=== PATIENT | female | born 1955 | race Caucasian/White ===

== ENCOUNTER 2016-08-27 15:31 | Emergency (ER) | payer OTHER ==
--- NOTE | 2016-08-27 18:02 | DIAGNOSTIC IMAGING REPORT ---
PROCEDURE: XR CHEST 1 VIEW INDICATION: PALPITATIONS TECHNIQUE: Single view chest. 1756 hours COMPARISON: 08/12/2012 FINDINGS: The cardiopulmonary contour and central vasculature are stable, within normal limits. The lungs are clear without focal consolidation, pleural effusion or pneumothorax. The osseous structures are intact. IMPRESSION: 1. No evidence of acute cardiopulmonary disease.
--- NOTE | 2016-08-27 18:13 | DIAGNOSTIC IMAGING REPORT ---
PROCEDURE: CT HEAD WITHOUT CONTRAST INDICATION: DIZZINESS TECHNIQUE: Noncontrast axial images with sagittal and coronal reformations. COMPARISON: None. FINDINGS: Brain and ventricles are normal. No evidence of an acute process or hemorrhage. Cavernous carotid vascular calcifications. Sinuses and mastoids are normal. IMPRESSION: 1. Cavernous carotid vascular calcifications. 2. Otherwise negative head CT. 3. Findings discussed with Dr. Curly Bryan at [address] scans at this facility use dose modulation, iterative reconstruction, and/or weight-based dosing when appropriate to reduce radiation dose to as low as reasonably achievable.
--- NOTE | 2016-08-27 19:21 | ED ORDER SUMMARY ---
..... Patient: AWILDA BATISTA OrderSheet [facility] VisitID: [id number] [address] [place] [address] 60y, F Registration Date/Time: 08/27/2016 ORDER SHEET Weight: 72.5 kg (stated) Allergies: None GENERAL ORDERS: CBC w Diff Urgent (16:01 08/27/2016 KKnebel R.N. per protocol) (16:02 KKnebel R.N.) CMP Urgent (16:08/27/2016 KKnebel R.N. per protocol) (16:02 KKnebel R.N.) UA-Culture if indicated Urgent (16:01 08/27/2016 KKnebel R.N. per protocol) (Ack 16:10 Stepan) (16:32 DONNAoerner) CT Head wo Cont Urgent (17:47 08/27/2016 Emilio STAUFFER) (Ack 17:56 Stepan) (18:28 LUCRETIAnebel R.N.) Transportation Planning Engineer (Continuous) (17:48 08/27/2016 Emilio STAUFFER) (Ack 17:59 Radha) (18:26 Radha) Chest 1V Urgent (17:48 08/27/2016 Emilio STAUFFER) (Ack 17:56 Stepan) (18:28 LUCRETIAnebel R.N.) Amylase Urgent (17:48 08/27/2016 Emilio STAUFFER) (Ack 17:56 Stepan) (18:28 Palmirabel R.N.) Lipase Urgent (17:48 08/27/2016 Emilio STAUFFER) (Ack 17:56 Stepan) (18:28 Jean-Pierre R.N.) CPK Urgent (17:48 08/27/2016 Emilio STAUFFER) (Ack 17:56 Stepan) (18:28 Jean-Pierre R.N.) Troponin-I Urgent (17:48 08/27/2016 Emilio STAUFFER) (Ack 17:56 Stepan) (18:28 Jean-Pierre R.N.) EKG - ER Stat (17:48 08/27/2016 Emilio STAUFFER) (Ack 17:59 Radha) (18:26 [facility] US Carotid Doppler Bilat Urgent (18:19 08/27/2016 Emilio STAUFFER) (Ack 18:21 Stepan) (18:28 Jean-Pierre R.N.) MEDICATION ORDERS: IV FLUIDS: IV Saline Lock (16:01 08/27/2016 Palmirabel R.N. per protocol) (16:02 LUCRETIAnebel R.N.) ORDER SHEET NOTES: [Electronically signed by Curly Bryan MD (02:03 08/29/2016)] [Electronically signed by Danika Fischer R.N. (08:08/29/2016)] [Electronically locked/signed by Danika Fischer R.N. (08:08/29/2016)]
--- NOTE | 2016-08-27 19:21 | ED CLINICAL REPORT ---
Clinical Report - Physicians/Mid Levels [facility] [address] [place] [address] 08/27/2016 15:31 Patient: AWILDA BATISTA Time Seen: 16:16. Arrived- By private vehicle. Historian- patient. HISTORY OF PRESENT ILLNESS Chief Complaint: DIZZINESS. This started today and is now gone. It was abrupt in onset and has been constant and waxing/waning. Severity described as severe at its maximum. When seen in the E.D., it was gone. Described as a sense of rotation, sense of falling and feeling off balance, light-headed and faint. The patient has had nausea. No vomiting, hearing loss, tinnitus or ear pain. Similar symptoms previously: None. REVIEW OF SYSTEMS The patient has had a headache (for several days). No chills, fever, sweats, calf pain or chest pain. No cough, difficulty breathing, pedal edema, palpitations or abdominal pain. No constipation, diarrhea, nausea, vomiting or urinary problems. All systems otherwise negative, except as recorded above. PAST HISTORY ( Hypertension. Hyperlipidemia.). Problems: Macular pucker. Fibromyalgia. Arthritis. Headache. Constipation. Anxiety Reaction. Irritable Bowel Syndrome. Animal Bite. Medications: Linzess Oral. LORazepam Oral 1 mg, at bedtime. Allergies: None. SOCIAL HISTORY Never smoker. Occasional alcohol use. FAMILY HISTORY Diabetes in first-degree relative (sibling); heart disease in first-degree relative (father); emphysema in first-degree relative (sibling); cancer in first-degree relative (mother). ADDITIONAL NOTES The nursing notes have been reviewed. PHYSICAL EXAM Vital Signs: 08/27/2016 15:35 BP: 173/70. HR: 59. RR: 16. O2 saturation: 100%. Temp: 97.6 F. Pain level now: 2/10. Have been reviewed. Appearance: Alert. No acute distress. Eyes: Pupils equal, round and reactive to light. No nystagmus. ENT: TM's normal. Moist mucous membranes. Pharynx normal. Neck: Normal inspection. Neck supple. No carotid bruit. CVS: Normal heart rate and rhythm. Heart sounds normal. Respiratory: No respiratory distress. Breath sounds normal. Abdomen: Soft and nontender. No organomegaly. Back: Normal inspection. Skin: Skin warm and dry. Normal skin color. No rash. Normal skin turgor. Extremities: Extremities exhibit normal ROM. No calf tenderness. No lower extremity edema. Neuro: Alert. Mood/affect normal. Speech normal. No cerebellar findings. No motor deficit. No sensory deficit. LABS, X-RAYS, AND EKG EKG: No acute process. Rate: 58. Prior EKG unavailable. The study has been independently viewed by me. Chest X-ray: (IMPRESSION: 1. No evidence of acute cardiopulmonary disease). The X-rays were interpreted by the radiologist and contemporaneously by me. Duplex Ultrasound: Right and left carotid study. Negative results. (appropriate flow in the vertebral arteries Discussed with the underwriting technician). The study was independently viewed by me. Laboratory Tests: UA-Culture if indicated: (SHANKAR: 08/27/2016 16:30) ( [facility] 08/27/2016 16:56) Final results Test Result Flag Units (Reference) URINE COLOR YELLOW URINE APPEARANCE SL CLOUDY URINE GLUCOSE NEGATIVE (NEGATIVE) URINE BILIRUBIN NEGATIVE (NEGATIVE) URINE KETONE TRACE (NEGATIVE) URINE SPECIFIC GRAVITY 1.020 (1.010-1.030) URINE PH 7.5 (5.0-8.0) URINE PROTEIN NEGATIVE (NEGATIVE) URINE UROBILINOGEN 0.2 EU/dL (0.2-1.0) URINE NITRITE NEGATIVE (NEGATIVE) URINE BLOOD NEGATIVE (NEGATIVE) URINE LEUK ESTERASE NEGATIVE (NEGATIVE) URINE RBC NONE SEEN rbc/hpf (0-1) URINE WBC 0-1 wbc/hpf (0-1) URINE EPITHELIAL CELLS 0-1 EPI/hpf (0-5) URINE BACTERIA NONE SEEN (NONE SEEN) URINE COMMENT CULT NOT INDICATED 2+ AMORPHOUSURINE CULTURES ARE SET-UP BASED ON THE FOLLOWING CRITERIA:POSITIVE NITRITEPOSITIVE LEUKOCYTE ESTERASEGREATER THAN 10 WHITE BLOOD CELLSMODERATE (2+) OR GREATER BACTERIA CBC w Diff: (SHANKAR: 08/27/2016 15:50) ( [facility] 08/27/2016 16:31) Final results Test Result Flag Units (Reference) WHITE BLOOD COUNT 8.9 K/uL (4.5-11.5) RED BLOOD COUNT 4.38 M/uL (4.00-5.20) HEMOGLOBIN 13.3 gm/dL (12.0-16.0) HEMATOCRIT 39.5 % (36.0-46.0) MEAN CELL VOLUME 90 fL (80-100) MEAN CORPUSCULAR HGB 30 pg (26-34) MEAN CORPUSCULAR HGB CONC 34 g/dL (31-37) RED CELL DISTRIBUTION WIDTH 12.8 % (11.6-14.8) PLATELET COUNT 376 K/uL (150-400) NEUTROPHIL % 56.6 % (50-75) LYMPH % 30.9 % (25-40) MONO % 9.5 % (3-14) EOSINOPHIL % 2.6 % (0-4) BASOPHIL % 0.4 % (0-2) Lipase: (SHANKAR: 08/27/2016 15:50) ( [facility] 08/27/2016 18:32) Final results Test Result Flag Units (Reference) LIPASE 146 U/L (73-393) AMYLASE 37 U/L (25-115) CPK 63 U/L (24-260) TROPONIN I <0.05 ng/mL (0.00-1.5) TROPONIN REFERENCE RANGE:<0.1 NEGATIVE0.1-1.5 INDETERMINANT>1.5 POSITIVE CMP: (SHANKAR: 08/27/2016 15:50) ( [facility] 08/27/2016 16:49) Final results Test Result Flag Units (Reference) GLUCOSE 101 mg/dL (70-110) BUN 18 mg/dL (7-18) CREATININE 0.9 mg/dL (0.6-1.3) Estimated GFR >60 mL/min Estimated GFR- >60 mL/min Note: Persistent reduction over 3 months in eGFR<60 mL/min/1.73 m2 defines CKD. Patients with eGFR values>=60 mL/min/1.73 m2 may also have CKD if evidence ofpersistent proteinuria. Additional information may be foundat www.kidney.org. SODIUM 146 H mmol/L (136-145) POTASSIUM 4.1 mmol/L (3.5-5.1) CHLORIDE 107 mmol/L (98-107) CARBON DIOXIDE 27 mmol/L (21-32) CALCIUM 9.4 mg/dL (8.5-10.1) TOTAL PROTEIN 7.0 g/dL (6.4-8.2) ALBUMIN 4.0 g/dL (3.3-5.0) BILIRUBIN, TOTAL 0.2 mg/dL (0.0-1.0) ALKALINE PHOSPHATASE 130 H U/L (46-116) AST (SGOT) 23 U/L (15-37) ALT (SGPT) 38 U/L (12-78) . PROGRESS AND PROCEDURES Course of Care: Patient is stable. Discussed case with patient's primary care provider, (Tom). Reviewed test results and need for additional work-up. Agreed upon treatment plan and need for patient follow-up. Health care provider will see patient in office. Patient/family counseled. Old medical records ordered. Disposition: Discharged. Condition: stable. CLINICAL IMPRESSION Dizziness INSTRUCTIONS No strenuous activity. Rest. Drink plenty of fluids. Warnings: Further evaluation is necessary. GENERAL WARNINGS: Return or contact your physician immediately if your condition worsens or changes unexpectedly, if not improving as expected, or if other problems arise. OTC Medications: Aspirin (available over the counter): take according to label instructions. Understanding of the discharge instructions verbalized by patient. Follow-up with: Fei Santos MD, [facility], , [address] [place] [address] Follow up tomorrow. Call for an appointment. (Electronically signed by Curly Bryan MD 08/29/2016 2:03)
--- NOTE | 2016-08-27 19:21 | ED ORDER SUMMARY ---
..... Patient: AWILDA BATISTA OrderSheet [facility] VisitID: [id number] [address] [place] [address] 60y, F Registration Date/Time: 08/27/2016 ORDER SHEET Weight: 72.5 kg (stated) Allergies: None GENERAL ORDERS: CBC w Diff Urgent (16:01 08/27/2016 KKnebel R.N. per protocol) (16:02 KKnebel R.N.) CMP Urgent (16:08/27/2016 KKnebel R.N. per protocol) (16:02 KKnebel R.N.) UA-Culture if indicated Urgent (16:01 08/27/2016 KKnebel R.N. per protocol) (Ack 16:10 Stepan) (16:32 DONNAoerner) CT Head wo Cont Urgent (17:47 08/27/2016 Emilio STAUFFER) (Ack 17:56 Stepan) (18:28 LUCRETIAnebel R.N.) Enamel Machine Operator (Continuous) (17:48 08/27/2016 Emilio STAUFFER) (Ack 17:59 Radha) (18:26 Radha) Chest 1V Urgent (17:48 08/27/2016 Emilio STAUFFER) (Ack 17:56 Stepan) (18:28 LUCRETIAnebel R.N.) Amylase Urgent (17:48 08/27/2016 Emilio STAUFFER) (Ack 17:56 Stepan) (18:28 Palmirabel R.N.) Lipase Urgent (17:48 08/27/2016 Emilio STAUFFER) (Ack 17:56 Stepan) (18:28 Jean-Pierre R.N.) CPK Urgent (17:48 08/27/2016 Emilio STAUFFER) (Ack 17:56 Stepan) (18:28 Jean-Pierre R.N.) Troponin-I Urgent (17:48 08/27/2016 Emilio STAUFFER) (Ack 17:56 Stepan) (18:28 Jean-Pierre R.N.) EKG - ER Stat (17:48 08/27/2016 Emilio STAUFFER) (Ack 17:59 Radha) (18:26 [facility] US Carotid Doppler Bilat Urgent (18:19 08/27/2016 Emilio STAUFFER) (Ack 18:21 Stepan) (18:28 Jean-Pierre R.N.) MEDICATION ORDERS: IV FLUIDS: IV Saline Lock (16:01 08/27/2016 Palmirabel R.N. per protocol) (16:02 LUCRETIAnebel R.N.) ORDER SHEET NOTES: [Electronically signed by Curly Bryan MD (02:03 08/29/2016)] [Electronically signed by Danika Fischer R.N. (08:08/29/2016)] [Electronically locked/signed by Danika Fischer R.N. (08:08/29/2016)]
--- NOTE | 2016-08-27 19:21 | ED NURSING NOTES ---
Clinical Report - Nurses [facility] [address] [place] [address] 08/27/2016 15:31 Patient: AWILDA BATISTA [facility]#: [id number] TRIAGE Triage time 15:35 Aug 27 2016. Acuity: LEVEL 3. Chief Complaint: HEADACHE. Alert. No acute distress. MILAGROS COMA SCORE: Milagros Coma Scale: 15- eyes open spontaneously (4); best verbal response- oriented x 4 (5); best motor response- obeys commands (6). --15:42 Danika Fischer R.N. 15:35 08/27/16. BP: 173/70. HR: 59. RR: 16. O2 saturation: 100%. Temp: 97.6 F. Pain level now: 06/01. --15:42 Danika Fischer R.N. Weight: 72.5 kg stated. Height/Length: 63 inches Per Patient. BMI: 28.3. --15:36 Danika Fischer R.N. Medications LORazepam Oral 1 mg, at bedtime. --15:38 Danika Fischer R.N. Linzess Oral. --15:38 Danika Fischer R.N. Allergies None. --15:38 Danika Fischer R.N. History Arrived by private vehicle. Historian: patient. Accompanied by family. This started about 2 days. She has had nausea. ( feels like things are spinning). Treatment CURRICULUM AND ASSESSMENT DIRECTOR: None. PAST MEDICAL HX: Headaches. Immunizations: up-to-date. The patient has had a hysterectomy. Denies current . SOCIAL HX: Never smoker. Occasional alcohol use. No drug use. No recent travel. No infectious disease exposure. No known contact with a sick individual. SELF HARM ASSESSMENT: A self harm assessment was performed. The patient answered "no" to the question "Do you have thoughts of harming or killing yourself?". FALL RISK ASSESSMENT: Fall risk assessment completed. No fall risk identified. NUTRITIONAL RISK ASSESSMENT: The nutritional risk assessment revealed no deficiencies. FUNCTIONAL ASSESSMENT: Functional assessment: no impairments noted. LEARNING NEEDS ASSESSMENT: The learning needs assessment revealed no barriers. ABUSE ASSESSMENT: Abuse assessment: The patient was asked "Do you feel safe in your home?". SKIN INTEGRITY ASSESSMENT: Skin integrity risk assessment completed. No skin integrity risk identified. --15:42 Danika Fischer R.N. PROBLEMS: Constipation. Anxiety Reaction. Irritable Bowel Syndrome. Animal Bite. Tetanus Status. --15:40 Danika Fischer R.N. Macular pucker. Fibromyalgia. Arthritis. --15:42 Danika Fischer R.N. ADDITIONAL SURGERIES: Colon resection. Foot surgery. Hysterectomy. Knee Surgery. Lumbar laminectomy. Shoulder Surgery. --15:40 Danika Fischer R.N. Interventions ID band on patient. To room. --15:42 Danika Fischer R.N. PHYSICAL ASSESSMENT GENERAL / NEURO / PSYCH: Alert. Oriented X 4. Appears in pain. Speech within normal limits. ( WRIGHT, Dizziness). RESPIRATORY: Respirations not labored. CVS: Capillary refill less than 2 seconds. GI / : The patient has had nausea. Abdomen soft and nontender. SKIN: Skin is warm and dry. --15:44 Danika Fischer R.N. NURSING PROGRESS NOTES Pulse oximeter and NIBP monitor placed on patient; monitor alarms on. Patient gowned. Head of bed elevated. Patient identifiers checked. Call light placed in reach. Side rails up x 1. Bed placed in lowest position. Brakes of bed on. --15:44 Danika Fischer R.N. 16:01 08/27/2016 Site #1 started via IV in the left wrist with an 20g angiocath, with aseptic technique and good blood return; one attempt. Blood drawn: rainbow set. Labeled in the presence of the patient and sent to the lab. Saline lock flushed with 10 mL saline. --16:02 Danika Fischer R.N. The patient is calm and resting quietly. Overall patient status is the same- she states feels the same. GENERAL / NEURO / PSYCH: The patient reports headache. GI / : Denies nausea. --18:29 Danika Fischer R.N. 18:28 08/27/16. BP: 150/68. HR: 71. O2 saturation: 100%. Pain level now: . --18:29 Danika Fischer R.N. EKG time: (18:11). EKG was performed by a tech and shown to the ED physician. --19:05 Oly Rios. DISPOSITION / DISCHARGE 19:35 08/27/2016 Site #1 removed upon discharge. Catheter intact. Bandage applied. --19:35 Danika Fischer R.N. Departure time: 19:36 Aug 27 2016. Condition at departure: unchanged. No learning barriers present. Discharge instructions provided and reviewed with the patient. Reviewed medication(s) side effects, precautions, dosing and course information. Reviewed referral to a primary care physician. Patient verbalized understanding. Written instructions provided in Arabic. The patient was discharged home and accompanied by spouse. She left the Emergency Department ambulatory and via private vehicle. Spouse driving. FALL RISK ASSESSMENT: Fall risk assessment completed. No fall risk identified. --19:37 Danika Fischer R.N. 19:34 08/27/16. BP: 130/57. HR: 56. RR: 16. O2 saturation: 100%. Pain level now: 05/01. --19:37 Danika Fischer R.N. Locked/Released at 08/29/2016 8:26 by Danika Fischer R.N.
--- NOTE | 2016-08-27 19:21 | ED CLINICAL REPORT ---
Clinical Report - Physicians/Mid Levels [facility] [address] [place] [address] 08/27/2016 15:31 Patient: AWILDA BATISTA Time Seen: 16:16. Arrived- By private vehicle. Historian- patient. HISTORY OF PRESENT ILLNESS Chief Complaint: DIZZINESS. This started today and is now gone. It was abrupt in onset and has been constant and waxing/waning. Severity described as severe at its maximum. When seen in the E.D., it was gone. Described as a sense of rotation, sense of falling and feeling off balance, light-headed and faint. The patient has had nausea. No vomiting, hearing loss, tinnitus or ear pain. Similar symptoms previously: None. REVIEW OF SYSTEMS The patient has had a headache (for several days). No chills, fever, sweats, calf pain or chest pain. No cough, difficulty breathing, pedal edema, palpitations or abdominal pain. No constipation, diarrhea, nausea, vomiting or urinary problems. All systems otherwise negative, except as recorded above. PAST HISTORY ( Hypertension. Hyperlipidemia.). Problems: Macular pucker. Fibromyalgia. Arthritis. Headache. Constipation. Anxiety Reaction. Irritable Bowel Syndrome. Animal Bite. Medications: Linzess Oral. LORazepam Oral 1 mg, at bedtime. Allergies: None. SOCIAL HISTORY Never smoker. Occasional alcohol use. FAMILY HISTORY Diabetes in first-degree relative (sibling); heart disease in first-degree relative (father); emphysema in first-degree relative (sibling); cancer in first-degree relative (mother). ADDITIONAL NOTES The nursing notes have been reviewed. PHYSICAL EXAM Vital Signs: 08/27/2016 15:35 BP: 173/70. HR: 59. RR: 16. O2 saturation: 100%. Temp: 97.6 F. Pain level now: 2/10. Have been reviewed. Appearance: Alert. No acute distress. Eyes: Pupils equal, round and reactive to light. No nystagmus. ENT: TM's normal. Moist mucous membranes. Pharynx normal. Neck: Normal inspection. Neck supple. No carotid bruit. CVS: Normal heart rate and rhythm. Heart sounds normal. Respiratory: No respiratory distress. Breath sounds normal. Abdomen: Soft and nontender. No organomegaly. Back: Normal inspection. Skin: Skin warm and dry. Normal skin color. No rash. Normal skin turgor. Extremities: Extremities exhibit normal ROM. No calf tenderness. No lower extremity edema. Neuro: Alert. Mood/affect normal. Speech normal. No cerebellar findings. No motor deficit. No sensory deficit. LABS, X-RAYS, AND EKG EKG: No acute process. Rate: 58. Prior EKG unavailable. The study has been independently viewed by me. Chest X-ray: (IMPRESSION: 1. No evidence of acute cardiopulmonary disease). The X-rays were interpreted by the radiologist and contemporaneously by me. Duplex Ultrasound: Right and left carotid study. Negative results. (appropriate flow in the vertebral arteries Discussed with the optical engineering technician). The study was independently viewed by me. Laboratory Tests: UA-Culture if indicated: (SHANKAR: 08/27/2016 16:30) ( [facility] 08/27/2016 16:56) Final results Test Result Flag Units (Reference) URINE COLOR YELLOW URINE APPEARANCE SL CLOUDY URINE GLUCOSE NEGATIVE (NEGATIVE) URINE BILIRUBIN NEGATIVE (NEGATIVE) URINE KETONE TRACE (NEGATIVE) URINE SPECIFIC GRAVITY 1.020 (1.010-1.030) URINE PH 7.5 (5.0-8.0) URINE PROTEIN NEGATIVE (NEGATIVE) URINE UROBILINOGEN 0.2 EU/dL (0.2-1.0) URINE NITRITE NEGATIVE (NEGATIVE) URINE BLOOD NEGATIVE (NEGATIVE) URINE LEUK ESTERASE NEGATIVE (NEGATIVE) URINE RBC NONE SEEN rbc/hpf (0-1) URINE WBC 0-1 wbc/hpf (0-1) URINE EPITHELIAL CELLS 0-1 EPI/hpf (0-5) URINE BACTERIA NONE SEEN (NONE SEEN) URINE COMMENT CULT NOT INDICATED 2+ AMORPHOUSURINE CULTURES ARE SET-UP BASED ON THE FOLLOWING CRITERIA:POSITIVE NITRITEPOSITIVE LEUKOCYTE ESTERASEGREATER THAN 10 WHITE BLOOD CELLSMODERATE (2+) OR GREATER BACTERIA CBC w Diff: (SHANKAR: 08/27/2016 15:50) ( [facility] [place] 08/27/2016 16:31) Final results Test Result Flag Units (Reference) WHITE BLOOD COUNT 8.9 K/uL (4.5-11.5) RED BLOOD COUNT 4.38 M/uL (4.00-5.20) HEMOGLOBIN 13.3 gm/dL (12.0-16.0) HEMATOCRIT 39.5 % (36.0-46.0) MEAN CELL VOLUME 90 fL (80-100) MEAN CORPUSCULAR HGB 30 pg (26-34) MEAN CORPUSCULAR HGB CONC 34 g/dL (31-37) RED CELL DISTRIBUTION WIDTH 12.8 % (11.6-14.8) PLATELET COUNT 376 K/uL (150-400) NEUTROPHIL % 56.6 % (50-75) LYMPH % 30.9 % (25-40) MONO % 9.5 % (3-14) EOSINOPHIL % 2.6 % (0-4) BASOPHIL % 0.4 % (0-2) Lipase: (SHANKAR: 08/27/2016 15:50) ( [facility] [place] 08/27/2016 18:32) Final results Test Result Flag Units (Reference) LIPASE 146 U/L (73-393) AMYLASE 37 U/L (25-115) CPK 63 U/L (24-260) TROPONIN I <0.05 ng/mL (0.00-1.5) TROPONIN REFERENCE RANGE:<0.1 NEGATIVE0.1-1.5 INDETERMINANT>1.5 POSITIVE CMP: (SHANKAR: 08/27/2016 15:50) ( [facility] [place] 08/27/2016 16:49) Final results Test Result Flag Units (Reference) GLUCOSE 101 mg/dL (70-110) BUN 18 mg/dL (7-18) CREATININE 0.9 mg/dL (0.6-1.3) Estimated GFR >60 mL/min Estimated GFR- >60 mL/min Note: Persistent reduction over 3 months in eGFR<60 mL/min/1.73 m2 defines CKD. Patients with eGFR values>=60 mL/min/1.73 m2 may also have CKD if evidence ofpersistent proteinuria. Additional information may be foundat [email or web address].org. SODIUM 146 H mmol/L (136-145) POTASSIUM 4.1 mmol/L (3.5-5.1) CHLORIDE 107 mmol/L (98-107) CARBON DIOXIDE 27 mmol/L (21-32) CALCIUM 9.4 mg/dL (8.5-10.1) TOTAL PROTEIN 7.0 g/dL (6.4-8.2) ALBUMIN 4.0 g/dL (3.3-5.0) BILIRUBIN, TOTAL 0.2 mg/dL (0.0-1.0) ALKALINE PHOSPHATASE 130 H U/L (46-116) AST (SGOT) 23 U/L (15-37) ALT (SGPT) 38 U/L (12-78) . PROGRESS AND PROCEDURES Course of Care: Patient is stable. Discussed case with patient's primary care provider, (Tom). Reviewed test results and need for additional work-up. Agreed upon treatment plan and need for patient follow-up. Health care provider will see patient in office. Patient/family counseled. Old medical records ordered. Disposition: Discharged. Condition: stable. CLINICAL IMPRESSION Dizziness INSTRUCTIONS No strenuous activity. Rest. Drink plenty of fluids. Warnings: Further evaluation is necessary. GENERAL WARNINGS: Return or contact your physician immediately if your condition worsens or changes unexpectedly, if not improving as expected, or if other problems arise. OTC Medications: Aspirin (available over the counter): take according to label instructions. Understanding of the discharge instructions verbalized by patient. Follow-up with: Fei Santos MD, [facility], , [address] [place] [address] Follow up tomorrow. Call for an appointment. (Electronically signed by Curly Bryan MD 08/29/2016 2:03)
--- NOTE | 2016-08-27 19:21 | ED NURSING NOTES ---
Clinical Report - Nurses [facility] [address] [place] [address] 08/27/2016 15:31 [id number] Triage time 15:35 Aug 27 2016. Acuity: LEVEL 3. Chief Complaint: HEADACHE. Alert. No acute distress. MILAGROS COMA SCORE: Milagros Coma Scale: 15- eyes open spontaneously (4); best verbal response- oriented x 4 (5); best motor response- obeys commands (6). --15:42 Danika Fischer R.N. 15:35 08/27/16. BP: 173/70. HR: 59. RR: 16. O2 saturation: 100%. Temp: 97.6 F. Pain level now: 06/01. --15:42 Danika Fischer R.N. Weight: 72.5 kg stated. Height/Length: 63 inches Per Patient. BMI: 28.3. --15:36 Danika Fischer R.N. Medications LORazepam Oral 1 mg, at bedtime. --15:38 Danika Fischer R.N. Linzess Oral. --15:38 Danika Fischer R.N. Allergies None. --15:38 Danika Fischer R.N. History Arrived by private vehicle. Historian: patient. Accompanied by family. This started about 2 days. She has had nausea. ( feels like things are spinning). Treatment MANAGER GROCERY: None. PAST MEDICAL HX: Headaches. Immunizations: up-to-date. The patient has had a hysterectomy. Denies current . SOCIAL HX: Never smoker. Occasional alcohol use. No drug use. No recent travel. No infectious disease exposure. No known contact with a sick individual. SELF HARM ASSESSMENT: A self harm assessment was performed. The patient answered "no" to the question "Do you have thoughts of harming or killing yourself?". FALL RISK ASSESSMENT: Fall risk assessment completed. No fall risk identified. NUTRITIONAL RISK ASSESSMENT: The nutritional risk assessment revealed no deficiencies. FUNCTIONAL ASSESSMENT: Functional assessment: no impairments noted. LEARNING NEEDS ASSESSMENT: The learning needs assessment revealed no barriers. ABUSE ASSESSMENT: Abuse assessment: The patient was asked "Do you feel safe in your home?". SKIN INTEGRITY ASSESSMENT: Skin integrity risk assessment completed. No skin integrity risk identified. --15:42 Danika Fischer R.N. PROBLEMS: Constipation. Anxiety Reaction. Irritable Bowel Syndrome. Animal Bite. Tetanus Status. --15:40 Danika Fischer R.N. Macular pucker. Fibromyalgia. Arthritis. --15:42 Danika Fischer R.N. ADDITIONAL SURGERIES: Colon resection. Foot surgery. Hysterectomy. Knee Surgery. Lumbar laminectomy. Shoulder Surgery. --15:40 Danika Fischer R.N. Interventions ID band on patient. To room. --15:42 Danika Fischer R.N. PHYSICAL ASSESSMENT GENERAL / NEURO / PSYCH: Alert. Oriented X 4. Appears in pain. Speech within normal limits. ( WRIGHT, Dizziness). RESPIRATORY: Respirations not labored. CVS: Capillary refill less than 2 seconds. GI / : The patient has had nausea. Abdomen soft and nontender. SKIN: Skin is warm and dry. --15:44 Danika Fischer R.N. NURSING PROGRESS NOTES Pulse oximeter and NIBP monitor placed on patient; monitor alarms on. Patient gowned. Head of bed elevated. Patient identifiers checked. Call light placed in reach. Side rails up x 1. Bed placed in lowest position. Brakes of bed on. --15:44 Danika Fischer R.N. 16:01 08/27/2016 Site #1 started via IV in the left wrist with an 20g angiocath, with aseptic technique and good blood return; one attempt. Blood drawn: rainbow set. Labeled in the presence of the patient and sent to the lab. Saline lock flushed with 10 mL saline. --16:02 Danika Fischer R.N. The patient is calm and resting quietly. Overall patient status is the same- she states feels the same. GENERAL / NEURO / PSYCH: The patient reports headache. GI / : Denies nausea. --18:29 Danika Fischer R.N. 18:28 08/27/16. BP: 150/68. HR: 71. O2 saturation: 100%. Pain level now: . --18:29 Danika Fischer R.N. EKG time: (18:11). EKG was performed by a tech and shown to the ED physician. --19:05 Oly Rios. DISPOSITION / DISCHARGE 19:35 08/27/2016 Site #1 removed upon discharge. Catheter intact. Bandage applied. --19:35 Danika Fischer R.N. Departure time: 19:36 Aug 27 2016. Condition at departure: unchanged. No learning barriers present. Discharge instructions provided and reviewed with the patient. Reviewed medication(s) side effects, precautions, dosing and course information. Reviewed referral to a primary care physician. Patient verbalized understanding. Written instructions provided in Yi. The patient was discharged home and accompanied by spouse. She left the Emergency Department ambulatory and via private vehicle. Spouse driving. FALL RISK ASSESSMENT: Fall risk assessment completed. No fall risk identified. --19:37 Danika Fischer R.N. 19:34 08/27/16. BP: 130/57. HR: 56. RR: 16. O2 saturation: 100%. Pain level now: 05/01. --19:37 Danika Fischer R.N. Locked/Released at 08/29/2016 8:26 by Danika Fischer R.N.
--- NOTE | 2016-08-27 19:52 | DIAGNOSTIC IMAGING REPORT ---
PROCEDURE: US BILATERAL CAROTID DOPPLER INDICATION: DIZZINESS TECHNIQUE: Color Doppler duplex imaging of the carotid and vertebral vessels. COMPARISON: None. FINDINGS: Right common carotid artery peak systolic velocity 94 cm/second. Right internal carotid artery peak systolic velocity 83 cm/second. Right external carotid artery peak systolic velocity 114 cm/second. Right pbtkdqjs-tt-ismtsq carotid artery ratio 0.9 Right vertebral artery peak systolic velocity 24 cm/second antegrade. Left common carotid artery peak systolic velocity 73 cm/second. Left internal carotid artery peak systolic velocity 86 cm/second. Left external carotid artery peak systolic velocity 68 cm/second. Left tjnmpmun-xe-lluhol carotid artery ratio 1.2 Left vertebral artery peak systolic velocity 33 cm/second antegrade. IMPRESSION: 1. Very mild partially calcified atheromatous plaque of the carotid bifurcations. 2. No evidence of stenosis. Velocity criteria are extrapolated from diameter data as defined by the Society of Radiologists in Ultrasound Consensus Conference, Radiology 2003; 229; 340-346.
--- NOTE | 2016-08-27 19:52 | DIAGNOSTIC IMAGING REPORT ---
PROCEDURE: US BILATERAL CAROTID DOPPLER INDICATION: DIZZINESS TECHNIQUE: Color Doppler duplex imaging of the carotid and vertebral vessels. COMPARISON: None. FINDINGS: Right common carotid artery peak systolic velocity 94 cm/second. Right internal carotid artery peak systolic velocity 83 cm/second. Right external carotid artery peak systolic velocity 114 cm/second. Right lcqefgux-el-rtzovp carotid artery ratio 0.9 Right vertebral artery peak systolic velocity 24 cm/second antegrade. Left common carotid artery peak systolic velocity 73 cm/second. Left internal carotid artery peak systolic velocity 86 cm/second. Left external carotid artery peak systolic velocity 68 cm/second. Left kqlidyav-wf-utsgvk carotid artery ratio 1.2 Left vertebral artery peak systolic velocity 33 cm/second antegrade. IMPRESSION: 1. Very mild partially calcified atheromatous plaque of the carotid bifurcations. 2. No evidence of stenosis. Velocity criteria are extrapolated from diameter data as defined by the Society of Radiologists in Ultrasound Consensus Conference, Radiology 2003; 229; 340-346.
--- NOTE | 2016-08-29 08:27 | ED MAR SUMMARY ---
..... Medication Administration Record [facility] [address] [place], [place] [id number] Patient: AWILDA BATISTA Visit ID: [id number] 60y, F Weight: 72.5 kg Height/Length: 63 in BMI: 28.3 ALLERGIES: None
--- NOTE | 2016-08-29 08:27 | ED MAR SUMMARY ---
..... Medication Administration Record [facility] [address] [place] [place], [place] [id number] Patient: AWILDA BATISTA Visit ID: [id number] 60y, F Weight: 72.5 kg Height/Length: 63 in BMI: 28.3 ALLERGIES: None
--- NOTE | 2016-08-29 08:27 | ED MED RECONCILIATION SUMMARY ---
Patient: AWILDA BATISTA Medication Reconciliation Report [facility] VisitID: [id number] [address] [place] [address] 60y, F Registration Date/Time: 08/27/2016 Weight: 72.5 kg Height/Length: 63 in. BMI: 28.3 ALLERGIES: None The patient's Home Medications are listed below: THE FOLLOWING MEDICATIONS NEED TO BE RECONCILED: Linzess Oral LORazepam Oral 1 mg, at bedtime The source(s) of the original Home Medication information: Not obtained. The following Medications were given to the patient in the Emergency Department: None. The following Medications were prescribed to the patient: Aspirin (available over the counter): take according to label instructions. -- Curly Bryan MD
--- NOTE | 2016-08-29 08:27 | ED DISCHARGE INSTRUCTIONS ---
Patient: AWILDA BATISTA General Instructions [facility] VisitID: [id number] [address], [place] [id number] 60y, F Registration Date/Time: 08/27/2016 Dizziness INSTRUCTIONS No strenuous activity. Rest. Drink plenty of fluids. Warnings: Further evaluation is necessary. GENERAL WARNINGS: Return or contact your physician immediately if your condition worsens or changes unexpectedly, if not improving as expected, or if other problems arise. OTC Medications: Aspirin (available over the counter): take according to label instructions. Understanding of the discharge instructions verbalized by patient. Follow-up with: Fei Santos MD, [facility], , [address] [place] [address], [place], [id number] Follow up tomorrow. Call for an appointment. ADDITIONAL INFORMATION Dizziness [Uncertain Cause] Dizziness is a common symptom sometimes described as "lightheadedness" or feeling like you are going to faint. If it lasts for only a few seconds and is related to changes in position (such as getting up after lying or sitting for a long time), it is usually not a sign of anything serious. Dizziness that lasts for minutes to hours, or comes on for no apparent reason, may be a sign of a more serious problem (such as dehydration, a medicine reaction, disease of the heart or brain). Today's exam did not show an exact cause for your dizzy spell . Sometimes additional tests are required before a cause can be found. Therefore, it is important to follow up with your doctor if your symptoms continue. Home Care: 1) If a dizzy spell occurs and lasts more than a few seconds, lie down until it passes. If you are lying down, then you cannot hurt yourself by falling if you do faint. 2) Do not drive or operate dangerous equipment until the dizzy spells have stopped for at least 48 hours. 3) If dizzy spells occur with sudden standing, this may be a sign of mild dehydration. Drink extra fluids over the next few days. 4) If you recently started a new medicine or if you had the dose of a current medicine increased (especially blood pressure medicine), talk with the prescribing doctor about your symptoms. Dose adjustments may be needed. Follow Up with your doctor for further evaluation within the next seven days, if your symptoms continue. Get Prompt Medical Attention if any of the following occur: -- Worsening of your symptoms -- Fainting, headache or seizure -- Repeated vomiting -- Feeling like you or the room is spinning -- Chest, arm, neck, back or jaw pain -- Palpitations (the sense that your heart is fluttering or beating fast or hard) -- Shortness of breath -- Blood in vomit or stool (black or red color) -- Weakness of an arm or leg or one side of the face -- Difficulty with speech or vision Aspirin Oral tablet What is this medicine? ASPIRIN ( pir in) is a pain reliever. It is used to treat mild pain and fever. This medicine is also used as directed by a doctor to prevent and to treat heart attacks, to prevent strokes, and to treat arthritis or inflammation. How should I use this medicine? Take this medicine by mouth with a glass of water. Follow the directions on the package or prescription label. You can take this medicine with or without food. If it upsets your stomach, take it with food. Do not take your medicine more often than directed. Talk to your sap crm developer regarding the use of this medicine in children. While this drug may be prescribed for children as young as 12 years of age for selected conditions, precautions do apply. Children and teenagers should not use this medicine to treat chicken pox or flu symptoms unless directed by a doctor. Patients over 65 years old may have a stronger reaction and need a smaller dose. What side effects may I notice from receiving this medicine? Side effects that you should report to your doctor or health childcare director as soon as possible: allergic reactions like skin rash, itching or hives, swelling of the face, lips, or tongue breathing problems changes in hearing, ringing in the ears confusion general ill feeling or flu-like symptoms pain on swallowing redness, blistering, peeling or loosening of the skin, including inside the mouth or nose signs and symptoms of bleeding such as bloody or black, tarry stools; red or dark-brown urine; spitting up blood or brown material that looks like coffee grounds; red spots on the skin; unusual bruising or bleeding from the eye, gums, or nose trouble passing urine or change in the amount of urine unusually weak or tired yellowing of the eyes or skin Side effects that usually do not require medical attention (report to your doctor or health childcare director if they continue or are bothersome): diarrhea or constipation nausea, vomiting stomach gas, heartburn What may interact with this medicine? Do not take this medicine with any of the following medications: cidofovir ketorolac probenecid This medicine may also interact with the following medications: alcohol alendronate bismuth subsalicylate flavocoxid herbal supplements like feverfew, garlic, cristal, ginkgo biloba, horse chestnut medicines for diabetes or glaucoma like acetazolamide, methazolamide medicines for gout medicines that treat or prevent blood clots like enoxaparin, heparin, ticlopidine, warfarin other aspirin and aspirin-like medicines NSAIDs, medicines for pain and inflammation, like ibuprofen or naproxen pemetrexed sulfinpyrazone varicella live vaccine What if I miss a dose? If you are taking this medicine on a regular schedule and miss a dose, take it as soon as you can. If it is almost time for your next dose, take only that dose. Do not take double or extra doses. Where should I keep my medicine? Keep out of the reach of children. Store at room temperature between 15 and 30 degrees C (59 and 86 degrees F). Protect from heat and moisture. Do not use this medicine if it has a strong vinegar smell. Throw away any unused medicine after the expiration date. What should I tell my health care provider before I take this medicine? They need to know if you have any of these conditions: anemia asthma bleeding problems child with chickenpox, the flu, or other viral infection diabetes gout if you frequently drink alcohol containing drinks kidney disease liver disease low level of vitamin K lupus smoke tobacco stomach ulcers or other problems an unusual or allergic reaction to aspirin, tartrazine dye, other medicines, dyes, or preservatives or trying to get breast-feeding What should I watch for while using this medicine? If you are treating yourself for pain, tell your doctor or health childcare director if the pain lasts more than 10 days, if it gets worse, or if there is a new or different kind of pain. Tell your doctor if you see redness or swelling. Also, check with your doctor if you have a fever that lasts for more than 3 days. Only take this medicine to prevent heart attacks or blood clotting if prescribed by your doctor or health childcare director. Do not take aspirin or aspirin-like medicines with this medicine. Too much aspirin can be dangerous. Always read the labels carefully. This medicine can irritate your stomach or cause bleeding problems. Do not smoke cigarettes or drink alcohol while taking this medicine. Do not lie down for 30 minutes after taking this medicine to prevent irritation to your throat. If you are scheduled for any medical or dental procedure, tell your healthcare provider that you are taking this medicine. You may need to stop taking this medicine before the procedure. You have been given the following additional information: Dizziness, Unk Cause Aspirin Oral tablet No strenuous activity. Rest. (Electronically signed by Curly Bryan MD 08/29/2016 2:03)
--- NOTE | 2016-08-29 08:27 | ED MED RECONCILIATION SUMMARY ---
Patient: AWILDA BATISTA Medication Reconciliation Report [facility] VisitID: [id number] [address] [place] [address] 60y, F Registration Date/Time: 08/27/2016 Weight: 72.5 kg Height/Length: 63 in. BMI: 28.3 ALLERGIES: None The patient's Home Medications are listed below: THE FOLLOWING MEDICATIONS NEED TO BE RECONCILED: Linzess Oral LORazepam Oral 1 mg, at bedtime The source(s) of the original Home Medication information: Not obtained. The following Medications were given to the patient in the Emergency Department: None. The following Medications were prescribed to the patient: Aspirin (available over the counter): take according to label instructions. -- Curly Bryan MD
--- NOTE | 2016-08-29 08:27 | ED DISCHARGE INSTRUCTIONS ---
Patient: AWILDA BATISTA General Instructions [facility] VisitID: [id number] [address] [place], [place] [id number] 60y, F Registration Date/Time: 08/27/2016 Dizziness INSTRUCTIONS No strenuous activity. Rest. Drink plenty of fluids. Warnings: Further evaluation is necessary. GENERAL WARNINGS: Return or contact your physician immediately if your condition worsens or changes unexpectedly, if not improving as expected, or if other problems arise. OTC Medications: Aspirin (available over the counter): take according to label instructions. Understanding of the discharge instructions verbalized by patient. Follow-up with: Fei Santos MD, [facility], , [address] [place] [address], [place], [id number] Follow up tomorrow. Call for an appointment. ADDITIONAL INFORMATION Dizziness [Uncertain Cause] Dizziness is a common symptom sometimes described as "lightheadedness" or feeling like you are going to faint. If it lasts for only a few seconds and is related to changes in position (such as getting up after lying or sitting for a long time), it is usually not a sign of anything serious. Dizziness that lasts for minutes to hours, or comes on for no apparent reason, may be a sign of a more serious problem (such as dehydration, a medicine reaction, disease of the heart or brain). Today's exam did not show an exact cause for your dizzy spell . Sometimes additional tests are required before a cause can be found. Therefore, it is important to follow up with your doctor if your symptoms continue. Home Care: 1) If a dizzy spell occurs and lasts more than a few seconds, lie down until it passes. If you are lying down, then you cannot hurt yourself by falling if you do faint. 2) Do not drive or operate dangerous equipment until the dizzy spells have stopped for at least 48 hours. 3) If dizzy spells occur with sudden standing, this may be a sign of mild dehydration. Drink extra fluids over the next few days. 4) If you recently started a new medicine or if you had the dose of a current medicine increased (especially blood pressure medicine), talk with the prescribing doctor about your symptoms. Dose adjustments may be needed. Follow Up with your doctor for further evaluation within the next seven days, if your symptoms continue. Get Prompt Medical Attention if any of the following occur: -- Worsening of your symptoms -- Fainting, headache or seizure -- Repeated vomiting -- Feeling like you or the room is spinning -- Chest, arm, neck, back or jaw pain -- Palpitations (the sense that your heart is fluttering or beating fast or hard) -- Shortness of breath -- Blood in vomit or stool (black or red color) -- Weakness of an arm or leg or one side of the face -- Difficulty with speech or vision Aspirin Oral tablet What is this medicine? ASPIRIN ( pir in) is a pain reliever. It is used to treat mild pain and fever. This medicine is also used as directed by a doctor to prevent and to treat heart attacks, to prevent strokes, and to treat arthritis or inflammation. How should I use this medicine? Take this medicine by mouth with a glass of water. Follow the directions on the package or prescription label. You can take this medicine with or without food. If it upsets your stomach, take it with food. Do not take your medicine more often than directed. Talk to your truck safety inspector regarding the use of this medicine in children. While this drug may be prescribed for children as young as 12 years of age for selected conditions, precautions do apply. Children and teenagers should not use this medicine to treat chicken pox or flu symptoms unless directed by a doctor. Patients over 65 years old may have a stronger reaction and need a smaller dose. What side effects may I notice from receiving this medicine? Side effects that you should report to your doctor or health child care specialist as soon as possible: allergic reactions like skin rash, itching or hives, swelling of the face, lips, or tongue breathing problems changes in hearing, ringing in the ears confusion general ill feeling or flu-like symptoms pain on swallowing redness, blistering, peeling or loosening of the skin, including inside the mouth or nose signs and symptoms of bleeding such as bloody or black, tarry stools; red or dark-brown urine; spitting up blood or brown material that looks like coffee grounds; red spots on the skin; unusual bruising or bleeding from the eye, gums, or nose trouble passing urine or change in the amount of urine unusually weak or tired yellowing of the eyes or skin Side effects that usually do not require medical attention (report to your doctor or health child care specialist if they continue or are bothersome): diarrhea or constipation nausea, vomiting stomach gas, heartburn What may interact with this medicine? Do not take this medicine with any of the following medications: cidofovir ketorolac probenecid This medicine may also interact with the following medications: alcohol alendronate bismuth subsalicylate flavocoxid herbal supplements like feverfew, garlic, cristal, ginkgo biloba, horse chestnut medicines for diabetes or glaucoma like acetazolamide, methazolamide medicines for gout medicines that treat or prevent blood clots like enoxaparin, heparin, ticlopidine, warfarin other aspirin and aspirin-like medicines NSAIDs, medicines for pain and inflammation, like ibuprofen or naproxen pemetrexed sulfinpyrazone varicella live vaccine What if I miss a dose? If you are taking this medicine on a regular schedule and miss a dose, take it as soon as you can. If it is almost time for your next dose, take only that dose. Do not take double or extra doses. Where should I keep my medicine? Keep out of the reach of children. Store at room temperature between 15 and 30 degrees C (59 and 86 degrees F). Protect from heat and moisture. Do not use this medicine if it has a strong vinegar smell. Throw away any unused medicine after the expiration date. What should I tell my health care provider before I take this medicine? They need to know if you have any of these conditions: anemia asthma bleeding problems child with chickenpox, the flu, or other viral infection diabetes gout if you frequently drink alcohol containing drinks kidney disease liver disease low level of vitamin K lupus smoke tobacco stomach ulcers or other problems an unusual or allergic reaction to aspirin, tartrazine dye, other medicines, dyes, or preservatives or trying to get breast-feeding What should I watch for while using this medicine? If you are treating yourself for pain, tell your doctor or health child care specialist if the pain lasts more than 10 days, if it gets worse, or if there is a new or different kind of pain. Tell your doctor if you see redness or swelling. Also, check with your doctor if you have a fever that lasts for more than 3 days. Only take this medicine to prevent heart attacks or blood clotting if prescribed by your doctor or health child care specialist. Do not take aspirin or aspirin-like medicines with this medicine. Too much aspirin can be dangerous. Always read the labels carefully. This medicine can irritate your stomach or cause bleeding problems. Do not smoke cigarettes or drink alcohol while taking this medicine. Do not lie down for 30 minutes after taking this medicine to prevent irritation to your throat. If you are scheduled for any medical or dental procedure, tell your healthcare provider that you are taking this medicine. You may need to stop taking this medicine before the procedure. You have been given the following additional information: Dizziness, Unk Cause Aspirin Oral tablet No strenuous activity. Rest. (Electronically signed by Curly Bryan MD 08/29/2016 2:03)
== END 2016-08-27 19:30 | disposition home or self-care (01) ==
LOC: ED SRH 15:31
DX: R42 Dizziness and giddiness (principal); R11.0 Nausea; Z79.899 Other long term (current) drug therapy
CPT/HCPCS: 90004; 90100; 90616; 92235; 92530; 92610; 95059